=== PATIENT | female | born 2000 | race Caucasian/White ===

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

== ENCOUNTER → 2019-01-07 | Outpatient (REF) | payer BC ==
[~2019-01-07] MED LIST changes: +MACR100C43 PO; -OMEP1CAP73 PO; +OMEP20CA3 PO; +PREVTAB2
[2019-01-07 16:44] LABS: APPEARANCE, URINE HAZY (CLEAR); BACTERIA, URINE AUTO 1+ (NEGATIVE); BILIRUBIN, URINE AUTO NEGATIVE (NEGATIVE); BLOOD, URINE BLOOD NEGATIVE (NEGATIVE); CALCIUM OXALATE CRYSTALS SMALL; COLOR, URINE YELLOW (YELLOW); GLUCOSE, URINE (UA) AUTO NEGATIVE (NEGATIVE); KETONE, URINE AUTO NEGATIVE (NEGATIVE); LEUKOCYTE ESTERASE, URINE AUTO 1+ (NEGATIVE); MUCUS, URINE SMALL (NEGATIVE); NITRITE, URINE AUTO NEGATIVE (NEGATIVE); PROTEIN, URINE AUTO NEGATIVE (NEGATIVE); RBC, URINE AUTO 1 /HPF (0-3); SPECIFIC GRAVITY URINE AUTO 1.017 (1.002-1.035); SQUAMOUS EPITHELIAL CELL UR AU 1 /HPF (0-6); UROBILINOGEN, URINE AUTO 0.2 mg/dL (0.0-2.0); WBC, URINE AUTO 3 /HPF (0-3)
== END ==
LOC: M LAB REF 16:14
PROVIDERS: ATTEND Nurse Practitioner Women's Health
DX: Z87.440 Personal history of urinary (tract) infections (principal)

== ENCOUNTER → 2019-02-16 | Outpatient (REF) | payer BC ==
[~2019-02-16] MED LIST changes: -OMEP20CA3 PO; +OMEP20CA4 PO
== END ==
LOC: M LAB REF 16:56
PROVIDERS: ATTEND Nurse Practitioner Family
DX: D72.9 Disorder of white blood cells, unspecified (principal)

== ENCOUNTER → 2019-03-04 | Outpatient (CLI) | payer BC ==
[2019-03-04 08:39] LABS: BASO % 0.5 % (0.0-1.0); EOS # 0.1 10^3/uL (0.0-0.50); EOS % 1.6 % (0.0-3.0); HEMATOCRIT 39.9 % (36.0-47.0); HEMOGLOBIN 12.9 g/dl (12.0-15.5); LYMPH # 1.7 10^3/uL (1.5-6.5); LYMPH % 45.8 % (24.0-44.0); MEAN CORPUSCULAR HEMOGLOBIN 32.2 pg (27.0-33.0); MEAN CORPUSCULAR HGB CONC 32.3 g/dl (32.0-36.5); MEAN CORPUSCULAR VOLUME 99.5 fl (80.0-96.0); MONO # 0.3 10^3/uL (0.0-0.8); MONO % 7.4 % (0.0-5.0); NEUTROPHILS # 1.6 10^3/uL (1.8-7.7); NEUTROPHILS % 44.7 % (36.0-66.0); PLATELET COUNT, AUTOMATED 157 10^3/uL (150-450); RED BLOOD COUNT 4.01 10^6/uL (4.00-5.40); WHITE BLOOD COUNT 3.7 10^3/uL (4.0-10.0)
[2019-03-04 10:41] LABS: H PYLORI QUALITATIVE IgG NEGATIVE (NEGATIVE)
[2019-03-04 11:10] LABS: ALT/SGPT 17 U/L (12-78); BILIRUBIN,DIRECT 0.1 MG/DL (0.0-0.2); BILIRUBIN,TOTAL 0.3 MG/DL (0.2-1.0); TOTAL PROTEIN 7.1 GM/DL (6.4-8.2)
[2019-03-04 11:11] LABS: IRON (FE) 54 UG/DL (50-170); PERCENT SATURATION 14.9 % (13.2-45.0); TOTAL IRON BINDING CAPACITY 362 UG/DL (250-450)
[2019-03-05 11:38] LABS: HEPATITIS A ANTIBODY IGM NEGATIVE (NEGATIVE); HEPATITIS B SURFACE ANTIBODY NEGATIVE (POSITIVE); HEPATITIS C VIRUS ABY INDEX 0.1 INDEX (<0.8)
[2019-03-09 08:14] LABS: ANTI-MITOCHONDRIAL ANTIBODY <20.0 Units (0.0-20.0); ANTI-SMOOTH MUSCLE ANTIBODY 6 Units (0-19); ANTINUCLEAR ANTIBODIES DIRECT Negative (Negative); CERULOPLASMIN 18.1 mg/dL (19.0-39.0); HEPATITIS A IgG TOTAL Positive (Negative); IGASUB3 13.2 mg/dL (13.4-97.9); IgA SERUM (part of Subclasses) 126 mg/dL (87-352); LIVER-KIDNEY MICROSOMAL ABY <20.1 Units (0.0-20.0); TISSUE TRANSGLUTAMINASE IgA <2 U/mL (0-3); UNITSIGA FOR GLIADIN IGA 3 units (0-19); UNITSIGG FOR GLIADIN IGG 2 units (0-19)
== END ==
LOC: M LAB 07:18
PROVIDERS: ATTEND Internal Medicine Gastroenterology
DX: R11.0 Nausea (principal)

== ENCOUNTER → 2020-01-27 | Outpatient (REF) | payer BC ==
[~2020-01-27] MED LIST changes: +OMEP1CAP73 PO; -OMEP20CA4 PO
== END ==
LOC: M LAB REF 12:22
PROVIDERS: ATTEND Nurse Practitioner Adult Health
DX: N76.0 Acute vaginitis (principal); R30.0 Dysuria

== ENCOUNTER → 2020-04-19 | Outpatient (REF) | payer BC ==
[2020-04-19 18:33] LABS: APPEARANCE, URINE CLEAR (CLEAR); BACTERIA, URINE AUTO 3+ (NEGATIVE); BILIRUBIN, URINE AUTO NEGATIVE (NEGATIVE); BLOOD, URINE BLOOD NEGATIVE (NEGATIVE); COLOR, URINE STRAW (YELLOW); GLUCOSE, URINE (UA) AUTO NEGATIVE (NEGATIVE); KETONE, URINE AUTO NEGATIVE (NEGATIVE); LEUKOCYTE ESTERASE, URINE AUTO 1+ (NEGATIVE); NITRITE, URINE AUTO NEGATIVE (NEGATIVE); PROTEIN, URINE AUTO NEGATIVE (NEGATIVE); RBC, URINE AUTO 1 /HPF (0-3); SPECIFIC GRAVITY URINE AUTO 1.003 (1.002-1.035); SQUAMOUS EPITHELIAL CELL UR AU 2 /HPF (0-6); UROBILINOGEN, URINE AUTO 0.2 mg/dL (0.0-2.0); WBC, URINE AUTO 6 /HPF (0-3)
== END ==
LOC: M LAB REF 16:56
PROVIDERS: ATTEND Obstetrics & Gynecology
DX: Z87.440 Personal history of urinary (tract) infections (principal)

== ENCOUNTER → 2020-06-28 | Outpatient (REF) | payer BC ==
[2020-06-28 17:53] LABS: APPEARANCE, URINE CLEAR (CLEAR); BACTERIA, URINE AUTO 1+ (NEGATIVE); BILIRUBIN, URINE AUTO NEGATIVE (NEGATIVE); BLOOD, URINE BLOOD 1+ (NEGATIVE); COLOR, URINE STRAW (YELLOW); GLUCOSE, URINE (UA) AUTO NEGATIVE (NEGATIVE); KETONE, URINE AUTO NEGATIVE (NEGATIVE); LEUKOCYTE ESTERASE, URINE AUTO NEGATIVE (NEGATIVE); NITRITE, URINE AUTO NEGATIVE (NEGATIVE); PROTEIN, URINE AUTO NEGATIVE (NEGATIVE); RBC, URINE AUTO 1 /HPF (0-3); SPECIFIC GRAVITY URINE AUTO 1.009 (1.002-1.035); SQUAMOUS EPITHELIAL CELL UR AU 0 /HPF (0-6); UROBILINOGEN, URINE AUTO 0.2 mg/dL (0.0-2.0); WBC, URINE AUTO 2 /HPF (0-3)
== END ==
LOC: M LAB REF 17:41
PROVIDERS: ATTEND Obstetrics & Gynecology
DX: N39.0 Urinary tract infection, site not specified (principal)

== ENCOUNTER → 2020-09-08 | Outpatient (REF) | payer BC ==
[2020-09-08 17:32] LABS: APPEARANCE, URINE CLEAR (CLEAR); BACTERIA, URINE AUTO 1+ (NEGATIVE); BILIRUBIN, URINE AUTO NEGATIVE (NEGATIVE); BLOOD, URINE BLOOD NEGATIVE (NEGATIVE); COLOR, URINE YELLOW (YELLOW); GLUCOSE, URINE (UA) AUTO NEGATIVE (NEGATIVE); KETONE, URINE AUTO NEGATIVE (NEGATIVE); LEUKOCYTE ESTERASE, URINE AUTO NEGATIVE (NEGATIVE); NITRITE, URINE AUTO NEGATIVE (NEGATIVE); PROTEIN, URINE AUTO NEGATIVE (NEGATIVE); RBC, URINE AUTO 1 /HPF (0-3); SPECIFIC GRAVITY URINE AUTO 1.008 (1.002-1.035); SQUAMOUS EPITHELIAL CELL UR AU 1 /HPF (0-6); UROBILINOGEN, URINE AUTO 0.2 mg/dL (0.0-2.0); WBC, URINE AUTO 3 /HPF (0-3)
== END ==
LOC: M LAB REF 16:14
PROVIDERS: ATTEND Obstetrics & Gynecology
DX: N39.0 Urinary tract infection, site not specified (principal)

== ENCOUNTER → 2020-11-21 | Outpatient (REF) | payer BC ==
[2020-11-21 12:26] LABS: APPEARANCE, URINE HAZY (CLEAR); BACTERIA, URINE AUTO NEGATIVE (NEGATIVE); BILIRUBIN, URINE AUTO NEGATIVE (NEGATIVE); BLOOD, URINE BLOOD NEGATIVE (NEGATIVE); COLOR, URINE YELLOW (YELLOW); GLUCOSE, URINE (UA) AUTO NEGATIVE (NEGATIVE); KETONE, URINE AUTO NEGATIVE (NEGATIVE); LEUKOCYTE ESTERASE, URINE AUTO TRACE (NEGATIVE); MUCUS, URINE SMALL (NEGATIVE); NITRITE, URINE AUTO NEGATIVE (NEGATIVE); PROTEIN, URINE AUTO NEGATIVE (NEGATIVE); RBC, URINE AUTO 0 /HPF (0-3); SPECIFIC GRAVITY URINE AUTO 1.024 (1.002-1.035); SQUAMOUS EPITHELIAL CELL UR AU 5 /HPF (0-6); UROBILINOGEN, URINE AUTO 0.2 mg/dL (0.0-2.0); WBC, URINE AUTO 3 /HPF (0-3)
== END ==
LOC: M LAB REF 11:52
PROVIDERS: ATTEND Obstetrics & Gynecology
DX: N39.0 Urinary tract infection, site not specified (principal)

== ENCOUNTER → 2020-11-21 | Outpatient (CLI) | payer BC | LOC: M LABSMTC 12:42 | PROVIDERS: ATTEND Pediatrics | DX: Z20.822 Contact with and (suspected) exposure to COVID-19 (principal) | CPT/HCPCS: C9803; U0003 ==

== ENCOUNTER → 2022-03-06 | Outpatient (CLI) | payer BC, MEDICAID, OTHER ==
[2022-03-06 15:47] LABS: HEMATOCRIT 37.9 % (36.0-47.0); HEMOGLOBIN 12.2 g/dl (12.0-15.5); MEAN CORPUSCULAR HEMOGLOBIN 31.6 pg (27.0-33.0); MEAN CORPUSCULAR HGB CONC 32.2 g/dl (32.0-36.5); MEAN CORPUSCULAR VOLUME 98.2 fl (80.0-96.0); PLATELET COUNT, AUTOMATED 129 10^3/uL (150-450); RED BLOOD COUNT 3.86 10^6/uL (4.00-5.40); WHITE BLOOD COUNT 4.9 10^3/uL (4.0-10.0)
[2022-03-06 17:42] LABS: HIV 1&2 SCREEN CENTAUR NEGATIVE (NEGATIVE)
== END ==
LOC: M PLALAB 09:44
PROVIDERS: ATTEND Obstetrics & Gynecology
DX: Z34.81 Encounter for supervision of other normal pregnancy, first trimester (principal)

== ENCOUNTER → 2022-04-03 | Outpatient (CLI) | payer OTHER | LOC: M PLALAB 14:49 | PROVIDERS: ATTEND Advanced Practice Midwife | DX: Z36.9 Encounter for antenatal screening, unspecified (principal) ==

== ENCOUNTER → 2022-04-03 | Outpatient (CLI) | payer OTHER ==
[2022-04-03 20:02] LABS: GC DNA AMPLIFICATION NEGATIVE (NEGATIVE)
== END ==
LOC: M PLALAB 14:47
PROVIDERS: ATTEND Obstetrics & Gynecology
DX: Z36.9 Encounter for antenatal screening, unspecified (principal)

== ENCOUNTER → 2022-05-17 | Outpatient (CLI) | payer BC, OTHER | LOC: M WHC 06:58 | PROVIDERS: ATTEND Advanced Practice Midwife | DX: O99.112 Other diseases of the blood and blood-forming organs and certain disorders involving the immune mechanism complicating pregnancy, second trimester (principal); Z3A.19 19 weeks gestation of pregnancy ==

== ENCOUNTER → 2022-07-05 | Outpatient (CLI) | payer BC, MEDICAID ==
[2022-07-05 11:42] LABS: HEMATOCRIT 31.9 % (36.0-47.0); HEMOGLOBIN 10.2 g/dl (12.0-15.5); PLATELET COUNT, AUTOMATED 157 10^3/uL (150-450); RED BLOOD COUNT 3.19 10^6/uL (4.00-5.40)
[2022-07-05 13:10] LABS: GC DNA AMPLIFICATION NEGATIVE (NEGATIVE)
== END ==
LOC: M PLALAB 08:30
PROVIDERS: ATTEND Obstetrics & Gynecology
DX: Z34.92 Encounter for supervision of normal pregnancy, unspecified, second trimester (principal); Z3A.00 Weeks of gestation of pregnancy not specified

== ENCOUNTER → 2022-07-12 | Outpatient (CLI) | payer BC, MEDICAID | LOC: M PLALAB 07:52 | PROVIDERS: ATTEND Obstetrics & Gynecology | DX: R73.09 Other abnormal glucose (principal) ==

== ENCOUNTER → 2022-07-18 | Outpatient (CLI) | payer BC, MEDICAID | LOC: M RAD 06:58 | PROVIDERS: ATTEND Obstetrics & Gynecology | DX: O26.843 Uterine size-date discrepancy, third trimester (principal); Z3A.28 28 weeks gestation of pregnancy ==

== ENCOUNTER → 2022-08-16 | Outpatient (CLI) | payer BC, MEDICAID | LOC: M LAB 06:59 | PROVIDERS: ATTEND Obstetrics & Gynecology | DX: R73.09 Other abnormal glucose (principal) ==

== ENCOUNTER → 2022-09-11 | Outpatient (REF) | payer BC, MEDICAID | LOC: M PLALAB 14:55 | PROVIDERS: ATTEND Obstetrics & Gynecology | DX: Z34.93 Encounter for supervision of normal pregnancy, unspecified, third trimester (principal) ==

== ENCOUNTER → 2022-09-13 | Outpatient (CLI) | payer BC, MEDICAID | LOC: M WHC 12:55 | PROVIDERS: ATTEND Advanced Practice Midwife | DX: O24.410 Gestational diabetes mellitus in pregnancy, diet controlled (principal); Z3A.36 36 weeks gestation of pregnancy ==

== ENCOUNTER → 2024-04-23 | Outpatient (REF) | payer BC, MEDICAID ==
[~2024-04-23] MED LIST changes: +ACET-683 PO; +B12-1CHW PO; +COLA100C5 PO; +IBUP-1022 PO; +IRON65TA2 PO; +ONDA-282 PO; -ONDA4TAB6 PO; +PRENTAB9 PO
[2024-04-23 17:35] LABS: PERCENT SATURATION 32.4 % (13.2-45.0)
[2024-04-23 17:37] LABS: FERRITIN 55.6 NG/ML (7.3-270.7)
== END ==
LOC: M LAB REF 16:21
PROVIDERS: ATTEND Nurse Practitioner Family
DX: D64.9 Anemia, unspecified (principal)

== ENCOUNTER → 2024-05-04 | Outpatient (REF) | payer BC, MEDICAID ==
[2024-05-04 18:09] LABS: APPEARANCE, URINE CLEAR (CLEAR); BACTERIA, URINE AUTO NEGATIVE (NEGATIVE); BILIRUBIN, URINE AUTO NEGATIVE (NEGATIVE); BLOOD, URINE BLOOD NEGATIVE (NEGATIVE); COLOR, URINE STRAW (YELLOW); GLUCOSE, URINE (UA) AUTO NEGATIVE (NEGATIVE); KETONE, URINE AUTO NEGATIVE (NEGATIVE); LEUKOCYTE ESTERASE, URINE AUTO 2+ (NEGATIVE); NITRITE, URINE AUTO NEGATIVE (NEGATIVE); PROTEIN, URINE AUTO NEGATIVE (NEGATIVE); RBC, URINE AUTO 0 /HPF (0-3); SPECIFIC GRAVITY URINE AUTO 1.003 (1.002-1.035); SQUAMOUS EPITHELIAL CELL UR AU 1 /HPF (0-6); UROBILINOGEN, URINE AUTO 0.2 mg/dL (0.0-2.0); WBC, URINE AUTO 3 /HPF (0-3)
== END ==
LOC: M SFHCWAGY 17:00
PROVIDERS: ATTEND Nurse Practitioner Family
DX: R39.15 Urgency of urination (principal)

== ENCOUNTER → 2025-04-22 | Outpatient (CLI) | payer BC ==
[~2025-04-22] MED LIST changes: -IBUP-1022 PO; +IBUP600T42 PO
[2025-04-22 11:27] LABS: BASO # 0.0 10^3/uL (0.0-0.2); BASO % 1.2 % (0.0-1.0); EOS # 0.1 10^3/uL (0.0-0.5); EOS % 2.4 % (0.0-3.0); LYMPH # 0.9 10^3/uL (1.5-5.0); LYMPH % 37.2 % (24.0-44.0); MONO # 0.2 10^3/uL (0.0-0.8); MONO % 7.9 % (2.0-8.0); NEUTROPHILS # 1.3 10^3/uL (1.5-8.5); NEUTROPHILS % 51.3 % (36.0-66.0)
[2025-04-22 11:35] LABS: ALT/SGPT 17 U/L (7.0-40); AST/SGOT 17 U/L (<34); CALCIUM LEVEL 9.0 MG/DL (8.5-10.1); CARBON DIOXIDE LEVEL 28 MMOL/L (20-31); CHLORIDE LEVEL 106 MMOL/L (98-107); CREATININE FOR GFR 0.80 MG/DL (0.55-1.30); GLOMERULAR FILTRATION RATE > 90.0 (>60); IRON (FE) 59 UG/DL (50-170); PERCENT SATURATION 18.6 % (13.2-45.0); POTASSIUM SERUM 4.1 MMOL/L (3.5-5.1); SODIUM LEVEL 142 MMOL/L (136-145)
[2025-04-22 11:36] LABS: VITAMIN B12 LEVEL 625 PG/ML (211-911)
[2025-04-22 11:37] LABS: FREE T4 1.22 NG/DL (0.89-1.76)
[2025-04-22 11:57] LABS: PLATELET COUNT, AUTOMATED 134 10^3/uL (150-450)
[2025-04-22 12:03] LABS: ESTIMATED AVERAGE GLUCOSE 103.0 MG/DL (60-110)
[2025-04-25 09:27] LABS: INSULIN TOTAL2 4.4 uIU/mL (<=18.4)
== END ==
LOC: M PLALAB 07:01
PROVIDERS: ATTEND Nurse Practitioner Adult Health
DX: D51.9 Vitamin B12 deficiency anemia, unspecified (principal); R53.83 Other fatigue; D50.9 Iron deficiency anemia, unspecified; R63.1 Polydipsia; R19.7 Diarrhea, unspecified; R19.5 Other fecal abnormalities